=== PATIENT | male | born 1965 | race African-American/Black ===

== ENCOUNTER 2020-03-10 23:40 | Emergency (ER) | payer MEDICAID ==
[~2020-03-10] VITALS: Ht 175.3 cm; Wt 69.9 kg
[2020-03-10 23:47] VITALS: Ht 175.3 cm; Wt 69.9 kg
[2020-03-11 00:42] VITALS: BP 111/72
== END 2020-03-11 00:42 | disposition home or self-care (01) ==
LOC: ED 23:40
DX: K04.7 Periapical abscess without sinus (principal); F17.210 Nicotine dependence, cigarettes, uncomplicated; Z71.6 Tobacco abuse counseling
CPT/HCPCS: 99406; J7030

== ENCOUNTER 2020-05-09 07:21 | Emergency (ER) | payer MEDICAID ==
[~2020-05-09] VITALS: Ht 175.3 cm; Wt 69.9 kg
[2020-05-09 07:36] VITALS: Ht 175.3 cm; Wt 69.9 kg
[2020-05-09 09:07] LABS: PLATELET COUNT 153 x10^3mcL (130-400); RED CELL DISTRIBUTION WIDTH 13.8 % (11.5-14.5)
[2020-05-09 09:47] LABS: CALCIUM 8.9 mg/dL (8.5-10.1); CARBON DIOXIDE 26.6 mmol/L (21-32); CHLORIDE SERUM 103 mmol/L (98-107); CREATININE SERUM 0.9 mg/dL (0.7-1.3); GFR1 > 60 mL/min; GLUCOSE SERUM 105 mg/dL (74-106); POTASSIUM SERUM 3.5 mmol/L (3.5-5.1); SODIUM SERUM 135 mmol/L (136-145)
[2020-05-09 09:52] LABS: ALKALINE PHOSPHATASE 115 U/L (46-116); ALT/SGPT 27 U/L (16-63); AST/SGOT 29 U/L (15-37); BILIRUBIN TOTAL 0.47 mg/dL (0.20-1.00); LIPASE 54 IU/L (73-393)
[2020-05-09 09:53] LABS: ALBUMIN 3.3 g/dL (3.4-5.0); TOTAL PROTEIN, SERUM 8.6 g/dL (6.4-8.2)
[2020-05-09 11:33] VITALS: BP 121/75
[2020-05-09 11:37] LABS: BAND NEUTROPHIL 6 % (0-10); MONOCYTE 8 % (0-7); SEGMENTED NEUTROPHILS 49 % (37-75); rbc morphology (normal/abnorm) NORMAL (NORMAL)
[2020-05-10] MEDS ORDERED: NEURONTIN100 MG (09:31)
[2020-05-10] MEDS ORDERED: BETIMOL5 M1 (09:31)
[2020-05-10] MEDS ORDERED: ATRIPLA1 TAB (09:33)
== END 2020-05-09 11:33 | disposition home or self-care (01) ==
LOC: ED 07:21
PROVIDERS: Emergency Medicine
DX: K29.70 Gastritis, unspecified, without bleeding (principal); F17.210 Nicotine dependence, cigarettes, uncomplicated; Z71.6 Tobacco abuse counseling
CPT/HCPCS: J2270; J2405; J7030